=== PATIENT | female | born 1985 | race Caucasian/White ===

== ENCOUNTER 2017-01-31 08:32 | Emergency (ER) | payer SELFPAY ==
[~2017-01-31] VITALS: Ht 157.5 cm; Wt 64.4 kg
[2017-01-31] MEDS ORDERED: NS IV 1000 ML 1,000 ML IV ONE (09:16)
--- NOTE | 2017-01-31 09:24 | ED General ---
General Chief Complaint: Dizziness/Syncope Stated Complaint: DIZZY/CHEST TIGHT/SWELLING Nursing Triage Note: PT CO OF BEING DIZZY AND HAVING ALL OVER SWELLING FOR A FEW DAYS Nursing Sepsis Screen: No Definite Risk Source of Information: Patient Exam Limitations: No Limitations History of Present Illness Time Seen by Provider: 09:10 Initial Comments Here with report of dizziness and swelling all over and just not feeling well. Complains of chills without fever. Denies nausea, vomiting or diarrhea. Does complain of back pain and is worried about urinary tract infection. States that she's had pyelonephritis previously. Was seen last week by her primary care provider and started on steroids. This did not change her symptoms and states that she is worse this week. Timing/Duration: 1 Week, Getting Worse Severity: Moderate Associated Systoms: No Cough, No Diaphoresis, No Fever/Chills, Malaise, No Nausea/Vomiting, No Shortness of Air, No Weakness Allergies and Home Medications Allergies Coded Allergies: No Known Drug Allergies (Unverified , 01/31/17) Constitutional: see HPI, chills, No fever, malaise EENTM: no symptoms reported Respiratory: no symptoms reported Cardiovascular: no symptoms reported Gastrointestinal: no symptoms reported Genitourinary: see HPI, No frequency, pain : No Musculoskeletal: see HPI, muscle pain Skin: no symptoms reported All Other Systems Reviewed Negative Unless Noted: Yes Past Pljusxe-Rznprj-Deppkv Hx Patient Social History Alcohol Use: Denies Use Recreational Drug Use: No Smoking Status: Current Everyday Smoker Type Used: Cigarettes Recent Foreign Travel: No Contact w/Someone Who Travel: No Recent Infectious Disease Expo: No Recent Hopitalizations: No Seasonal Allergies Seasonal Allergies: Yes Surgeries HX Surgeries: No Neurological Hx Neurological Disorders: Yes Neurological Disorders: Headaches /Migraines Musculoskeletal Hx Musculoskeletal Disorders: Yes (pectus excavatum) Psychosocial Hx Psychiatric Problems: Yes Behavioral Health Disorders: Anxiety, Depression Reviewed Nursing Assessment Reviewed/Agree w Nursing PMH: Yes Family Medical History Significant Family History: No Pertinent Family Hx Physical Exam Vital Signs Vital Sign - Last 12Hours 01/31/17 08:40 Temp 97.1 Pulse 63 Resp 18 B/P (MAP) 117/73 Pulse Ox 99 Capillary Refill : Less Than 3 Seconds General Appearance: No Apparent Distress, WD/WN HEENT: PERRL/EOMI, Pharynx Normal Neck: Non Tender, Supple Respiratory: Lungs Clear, Normal Breath Sounds Cardiovascular: Regular Rate, Rhythm, No Murmur Gastrointestinal: Non Tender, Soft Back: Normal Inspection, No Vertebral Tenderness, CVA Tenderness (L), CVA Tenderness (R) Extremity: Normal Range of Motion, Non Tender, No Calf Tenderness Neurologic/Psychiatric: Alert, Oriented x3 Skin: Normal Color, Warm/Dry Progress/Results/Core Measures Results/Orders Lab Results Laboratory Tests Test 01/31/17 09:25 01/31/17 09:40 Range/Units Urine Color YELLOW Urine Clarity CLEAR Urine pH 6.5 5-9 Urine Specific [place] 1.010 L 1.016-1.022 Urine Protein NEGATIVE NEGATIVE Urine Glucose (UA) NEGATIVE NEGATIVE Urine Ketones NEGATIVE NEGATIVE Urine Nitrite POSITIVE H NEGATIVE Urine Bilirubin NEGATIVE NEGATIVE Urine Urobilinogen NORMAL NORMAL MG/DL Urine Leukocyte Esterase 1+ H NEGATIVE Urine RBC (Auto) NEGATIVE NEGATIVE Urine RBC NONE /HPF Urine WBC 0-2 /HPF Urine Squamous Epithelial Cells 0-2 /HPF Urine Crystals NONE /LPF Urine Bacteria LARGE H /HPF Urine Casts NONE /LPF Urine Mucus NEGATIVE /LPF Urine Culture Indicated YES Urine Opiates Screen NEGATIVE NEGATIVE Urine Oxycodone Screen NEGATIVE NEGATIVE Urine Methadone Screen NEGATIVE NEGATIVE Urine Propoxyphene Screen NEGATIVE NEGATIVE Urine Barbiturates Screen NEGATIVE NEGATIVE Ur Tricyclic Antidepressants Screen NEGATIVE NEGATIVE Urine Phencyclidine Screen NEGATIVE NEGATIVE Urine Amphetamines Screen NEGATIVE NEGATIVE Urine Methamphetamines Screen NEGATIVE NEGATIVE Urine Benzodiazepines Screen NEGATIVE NEGATIVE Urine Cocaine Screen NEGATIVE NEGATIVE Urine Cannabinoids Screen NEGATIVE NEGATIVE White Blood Count 8.0 4.3-11.0 10^3/uL Red Blood Count 4.14 L 4.35-5.85 10^6/uL Hemoglobin 13.0 11.5-16.0 G/DL Hematocrit 39 35-52 % Mean Corpuscular Volume 94 80-99 FL Mean Corpuscular Hemoglobin 31 25-34 PG Mean Corpuscular Hemoglobin Concent 33 32-36 G/DL Red Cell Distribution Width 12.1 10.0-14.5 % Platelet Count 321 130-400 10^3/uL Mean Platelet Volume 9.2 7.4-10.4 FL Neutrophils (%) (Auto) 48 42-75 % Lymphocytes (%) (Auto) 40 12-44 % Monocytes (%) (Auto) 8 0-12 % Eosinophils (%) (Auto) 4 0-10 % Basophils (%) (Auto) 0 0-10 % Neutrophils # (Auto) 3.8 1.8-7.8 X 10^3 Lymphocytes # (Auto) 3.2 1.0-4.0 X 10^3 Monocytes # (Auto) 0.6 0.0-1.0 X 10^3 Eosinophils # (Auto) 0.3 0.0-0.3 10^3/uL Basophils # (Auto) 0.0 0.0-0.1 10^3/uL Sodium Level 141 135-145 MMOL/L Potassium Level 4.3 3.6-5.0 MMOL/L Chloride Level 105 98-107 MMOL/L Carbon Dioxide Level 29 21-32 MMOL/L Anion Gap 7 5-14 MMOL/L Blood Urea Nitrogen 10 7-18 MG/DL Creatinine 0.91 0.60-1.30 MG/DL Estimat Glomerular Filtration Rate > 60 BUN/Creatinine Ratio 11 0-20 Glucose Level 65 L 70-105 MG/DL Calcium Level 9.1 8.5-10.1 MG/DL Magnesium Level 2.2 1.8-2.4 MG/DL Total Bilirubin 0.3 0.1-1.0 MG/DL Aspartate Amino Transf (AST/SGOT) 17 5-34 U/L Alanine Aminotransferase (ALT/SGPT) 18 0-55 U/L Alkaline Phosphatase 60 40-136 U/L Total Protein 6.3 L 6.4-8.2 GM/DL Albumin 3.6 3.2-4.5 GM/DL Thyroid Stimulating Hormone (TSH) 0.52 0.35-4.94 UIU/ML My Orders Orders - RADHA BALDERRAMA MD Cbc With Automated Diff (01/31/17 09:16) Comprehensive Metabolic Panel (01/31/17 09:16) Drug Screen Stat (Urine) (01/31/17 09:16) Magnesium (01/31/17 09:16) Thyroid Stimulating Hormone (01/31/17 09:16) Ua Culture If Indicated (01/31/17 09:16) Saline Lock/Iv-Start (01/31/17 09:16) Ns Iv 1000 Ml (Sodium Chloride 0.9%) (01/31/17 09:16) Urine Culture (01/31/17 09:25) Ceftriaxone Injection (Rocephin Injectio (01/31/17 10:45) Medications Given in ED Current Medications Medications Dose Ordered Sig/Anival Route Start Time Stop Time Status Last Admin Dose Admin Ceftriaxone Sodium 1000 mg/ Sodium Chloride 50 ml @ 100 mls/hr ONCE ONCE IV 01/31/17 10:45 01/31/17 11:14 01/31/17 10:49 100 MLS/HR Sodium Chloride 1,000 ml @ 0 mls/hr Q0M ONCE IV 01/31/17 09:16 01/31/17 09:18 DC 01/31/17 09:29 1,000 MLS/HR Vital Signs/I&O Vital Sign - Last 12Hours 01/31/17 08:40 Temp 97.1 Pulse 63 Resp 18 B/P (MAP) 117/73 Pulse Ox 99 Blood Pressure Mean: 88 Progress Note : Progress Note Seen and evaluated. IV, labs, UA, UDS, normal saline 1 L bolus ordered. Monitor patient. UTI noted. Rocephin 1 g IV. 1109: Patient is doing better. We will continue outpatient treatment with antibiotic. Discharged home with return precautions. Patient verbalize understanding instructions and agreement with plan. Departure Impression Impression: Primary Impression: Urinary tract infection Qualified Codes: N30.00 - Acute cystitis without hematuria Disposition: HOME, SELF-CARE Condition: Improved Departure-Patient Inst. Decision time for Depature: 11:13 Referrals: NO,LOCAL PHYSICIAN (PCP/Family) Primary Care Physician Patient Instructions: Urinary Tract Infection, Adult (DC) Add. Discharge Instructions: All discharge instructions reviewed with patient and/or family. Voiced understanding. Take medications as directed. Drink plenty of fluids. You may take ibuprofen 600 mg every 8 hours as needed for pain. You may take Tylenol 1000 mg every 8 hours as needed for pain. Follow-up with your DrKarely in a few days for recheck. Return for worse pain, fever, vomiting, weakness, breathing problems or other concerns as needed. Scripts Cephalexin (Cephalexin) 500 Mg Tablet 500 MG PO BID, #14 TAB 0 Refills Prov: RADHA BALDERRAMA MD 01/31/17 RADHA BALDERRAMA MD Jan 31, 2017 09:24
[2017-01-31 09:52] LABS: BASOPHILS % (AUTO) 0 % (0-10); EOSINOPHILS # (AUTO) 0.3 10^3/uL (0.0-0.3); EOSINOPHILS % (AUTO) 4 % (0-10); LYMPHOCYTES # (AUTO) 3.2 X 10^3 (1.0-4.0); LYMPHOCYTES % (AUTO) 40 % (12-44); MEAN CORPUSCULAR HEMOGLOBIN 31 PG (25-34); MEAN CORPUSCULAR HGB CONC 33 G/DL (32-36); MEAN CORPUSCULAR VOLUME 94 FL (80-99); MEAN PLATELET VOLUME 9.2 FL (7.4-10.4); MONOCYTES # (AUTO) 0.6 X 10^3 (0.0-1.0); MONOCYTES % (AUTO) 8 % (0-12); NEUTROPHILS # (AUTO) 3.8 X 10^3 (1.8-7.8); NEUTROPHILS % (AUTO) 48 % (42-75); PLATELET COUNT 321 10^3/uL (130-400); RED BLOOD COUNT 4.14 10^6/uL (4.35-5.85); RED CELL DISTRIBUTION WIDTH 12.1 % (10.0-14.5)
[2017-01-31 09:52] LABS: BILIRUBIN,URINE NEGATIVE (NEGATIVE); KETONES,URINE NEGATIVE (NEGATIVE); LEUKOCYTE ESTERASE ,URINE 1+ (NEGATIVE); NITRITE,URINE POSITIVE (NEGATIVE); PH,URINE 6.5 (5-9); PROTEIN,URINE NEGATIVE (NEGATIVE); UROBILINOGEN,URINE NORMAL (NORMAL)
[2017-01-31 10:09] LABS: SQUAMOUS EPITHELIAL CELL,UR 0-2 /HPF; WBC,URINE 0-2 /HPF
[2017-01-31 10:13] LABS: ALANINE AMINOTRANSFERASE 18 U/L (0-55); ALBUMIN 3.6 GM/DL (3.2-4.5); ANION GAP 7 MMOL/L (5-14); ASPARTATE AMINO TRANSFERASE 17 U/L (5-34); BILIRUBIN,TOTAL 0.3 MG/DL (0.1-1.0); BLOOD UREA NITROGEN 10 MG/DL (7-18); BUN/CREATININE RATIO 11 (0-20); CALCIUM 9.1 MG/DL (8.5-10.1); CARBON DIOXIDE 29 MMOL/L (21-32); CHLORIDE 105 MMOL/L (98-107); CREATININE SERUM 0.91 MG/DL (0.60-1.30); GFR ESTIMATED > 60; GLUCOSE 65 MG/DL (70-105); HEMOLYSIS 10 (-100-29); ICTERUS 0.4 (-100-1.9); LIPEMIA 3 (-100-49); MAGNESIUM 2.2 MG/DL (1.8-2.4); POTASSIUM 4.3 MMOL/L (3.6-5.0); SODIUM 141 MMOL/L (135-145); TOTAL PROTEIN 6.3 GM/DL (6.4-8.2)
[2017-01-31 10:33] LABS: THYROID STIMULATING HORMONE 0.52 UIU/ML (0.35-4.94)
[2017-01-31] MEDS ORDERED: cefTRIAXone INJECTION 1,000 MG in NS (IVPB) 50 ML IV ONE (10:45)
[2017-01-31] MEDS ORDERED: CEPH500T PO (11:14)
[2017-01-31 11:21] VITALS: BP 122/74
--- OUTSIDE RECORDS SUMMARY | 2017-02-02 14:25 | XMS REPORT | Continuity of Care Document ---
Author Author [employer] Organization [facility] Address Unknown Phone Unavailable Care Team Providers Care Lab Director Name Role Phone [employer] Unavailable Unavailable Problems Problem Status Onset Date Classification Date Reported Comments Source Chest pain on breathing (finding) Active Problem 2013 [facility] Tobacco dependence syndrome (disorder) Active Problem [facility] Medications Allergies, Adverse Reactions, Alerts Substance Category Reaction Severity Reaction type Status Date Reported Comments Source NKA Assertion Drug allergy [facility] Immunizations Immunization Date Given Site Status Last Updated Comments Source No data available for this section No data available for this section [facility] Results Vital Signs Encounters Location Location Details Encounter Type Encounter Number Reason For Visit Attending Provider ADM Date DC Date Status Source CPM [id number] Clinic ( Outpatient) [id number] Imtiaz Martinez 09/10/2013 Active [facility] CPM [id number] Clinic ( Outpatient) [id number] 10/08/2013 Active [facility] CPM [id number] Clinic ( Outpatient) [id number] Kanu Boyce 10/08/2013 Active [facility] CPM [id number] Clinic ( Outpatient) [id number] Imtiaz Martinez 10/08/2013 Active [facility] CPM [id number] Clinic ( Outpatient) [id number] La Anderson 02/20/2014 Active [facility] CPM [id number] Clinic ( Outpatient) [id number] La Anderson 02/20/2014 Active [facility] CPM [id number] Clinic ( Outpatient) [id number] Kanu Boyce 02/20/2014 Active [facility] Cancel/No Show [id number] Kanu Boyce 02/20/2014 02/20/2014 [facility] [id number] Kanu Boyce 02/20/2014 12/05/2013 [facility] CPM [id number] Clinic ( Outpatient) [id number] Lelia Anderson 03/24/2014 Active [facility] Clinic [id number] Lelia Anderson 03/24/2014 02/28/2014 [facility] Procedures Plan of Care Social History Assessment and Plan Family History Value Date Source Advance Directives Order Name Results Value Date Source
== END 2017-01-31 11:21 | disposition home or self-care (01) ==
LOC: ER 08:37
DX: N39.0 Urinary tract infection, site not specified (principal); F41.9 Anxiety disorder, unspecified; F32.9 Major depressive disorder, single episode, unspecified; F17.210 Nicotine dependence, cigarettes, uncomplicated
CPT/HCPCS: 36415; 80053; 80306; 81000; 83735; 84443; 84703; 85025; 87077; 87088; 87186

== ENCOUNTER 2017-02-12 18:11 | Emergency (ER) | payer SELFPAY ==
[~2017-02-12] VITALS: Ht 160 cm; Wt 65.8 kg
[~2017-02-12 18:11] MED LIST: CEPH500T PO
--- NOTE | 2017-02-12 18:47 | ED Integumentary General ---
General Chief Complaint: Bite-Animal/Human/Insect Stated Complaint: SPIDER BITES ON BOTH LEGS Nursing Triage Note: c/o probable insect bites. Two bites noted to right lower leg and one to left lower leg. Circular hemorrhagic erythema noted that is approx 1.5 cm in diameter. Source: patient Exam Limitations: no limitations History of Present Illness Time seen by provider: 18:45 Initial Comments To ER with concern of a spider bite to the right lateral leg and the left lateral lower leg. This is been present for 3 days. No systemic symptoms such as fevers chills nausea or vomiting. Timing/Duration: other (3 days ago) Severity: mild Associated Symptoms: denies symptoms Allergies and Home Medications Allergies Coded Allergies: No Known Drug Allergies (Unverified , 01/31/17) Home Medications Cephalexin 500 Mg Tablet, 500 MG PO BID, #14 Ref 0 Prescribed by: RADHA BALDERRAMA on 01/31/17 1114 Constitutional: see HPI EENTM: see HPI Respiratory: no symptoms reported Cardiovascular: no symptoms reported Genitourinary: no symptoms reported Musculoskeletal: no symptoms reported Skin: see HPI Psychiatric/Neurological: No Symptoms Reported Endocrine: No Symptoms Reported Past Cvtmhrg-Ppclwr-Deibsp Hx Patient Social History Alcohol Use: Denies Use Recreational Drug Use: Yes Type Used: Cigarettes Recent Foreign Travel: No Contact w/Someone Who Travel: No Recent Infectious Disease Expo: No Recent Hopitalizations: No Seasonal Allergies Seasonal Allergies: Yes Surgeries HX Surgeries: No Neurological Hx Neurological Disorders: Yes Neurological Disorders: Headaches /Migraines Musculoskeletal Hx Musculoskeletal Disorders: Yes (pectus excavatum) Psychosocial Hx Psychiatric Problems: Yes Behavioral Health Disorders: Anxiety, Depression Family Medical History Significant Family History: No Pertinent Family Hx Physical Exam Vital Signs Vital Sign - Last 12Hours 02/12/17 18:29 Temp 97.5 Pulse 70 Resp 16 B/P (MAP) 118/70 Pulse Ox 98 O2 Delivery Room Air Capillary Refill : Less Than 3 Seconds General Appearance: WD/WN, no apparent distress HEENT: PERRL/EOMI, normal ENT inspection Neck: non-tender, full range of motion Respiratory: no respiratory distress, no accessory muscle use Gastrointestinal: normal bowel sounds, non tender, soft Neurologic/Psychiatric: alert, normal mood/affect, oriented x 3 Skin: normal color, warm/dry Skin Problem Location: lower extremities, other (there are to nickel-sized areas of erythema/petechiae to the lateral right lower leg. In the center of each of these is a small eschar about 2 cm. There is no induration or fluctuance. No lymphangitis. Similar appearing lesion on the left area) Progress/Results/Core Measures Results/Orders Vital Signs/I&O Vital Sign - Last 12Hours 02/12/17 18:29 Temp 97.5 Pulse 70 Resp 16 B/P (MAP) 118/70 Pulse Ox 98 O2 Delivery Room Air Blood Pressure Mean: 86 Departure Impression Impression: Primary Impression: Spider bite wound Disposition: HOME, SELF-CARE Condition: Stable Departure-Patient Inst. Decision time for Depature: 18:47 Referrals: [facility] (PCP) Primary Care Physician RAHUL SCOTT (Family) Primary Care Physician Patient Instructions: Insect Bites and Stings (DC) Add. Discharge Instructions: 1. Return to ER for any concerns 2. Cool compresses. 3. All discharge instructions reviewed with patient and/or family. Voiced understanding. [employer]ANT OPERATOR Feb 12, 2017 18:47
[2017-02-12 19:00] VITALS: BP 124/70
--- OUTSIDE RECORDS SUMMARY | 2017-02-15 13:46 | XMS REPORT | Continuity of Care Document ---
Author Author [employer] Organization [facility] Address Unknown Phone Unavailable Care Team Providers Care Kiln Worker Name Role Phone [employer] Unavailable Unavailable Problems Problem Status Onset Date Classification Date Reported Comments Source Chest pain on breathing (finding) Active Problem 2013 [facility] Tobacco dependence syndrome (disorder) Active Problem [facility] Medications Allergies, Adverse Reactions, Alerts Substance Category Reaction Severity Reaction type Status Date Reported Comments Source NKA Assertion Drug allergy [facility] Immunizations Immunization Date Given Site Status Last Updated Comments Source No data available for this section No data available for this section [facility] Results Vital Signs Encounters Location Location Details Encounter Type Encounter Number Reason For Visit Attending Provider ADM Date DC Date Status Source CPM [id number] Clinic ( Outpatient) [id number] Imtiaz Martinez 09/10/2013 Active [facility] CPM [id number] Clinic ( Outpatient) [id number] 10/08/2013 Active [facility] CPM [id number] Clinic ( Outpatient) [id number] Kanu Boyce 10/08/2013 Active [facility] CPM [id number] Clinic ( Outpatient) [id number] Imtiaz Martinez 10/08/2013 Active [facility] CPM [id number] Clinic ( Outpatient) [id number] La Anderson 02/20/2014 Active [facility] CPM [id number] Clinic ( Outpatient) [id number] La Anderson 02/20/2014 Active [facility] CPM [id number] Clinic ( Outpatient) [id number] Kanu Boyce 02/20/2014 Active [facility] Cancel/No Show [id number] Kanu Boyce 02/20/2014 02/20/2014 [facility] [id number] Kanu Boyce 02/20/2014 12/05/2013 [facility] CPM [id number] Clinic ( Outpatient) [id number] Lelia Anderson 03/24/2014 Active [facility] Clinic [id number] Lelia Anderson 03/24/2014 02/28/2014 [facility] Procedures Plan of Care Social History Assessment and Plan Family History Value Date Source Advance Directives Order Name Results Value Date Source
== END 2017-02-12 19:15 | disposition home or self-care (01) ==
LOC: EDUNIT# 18:11 → ER 18:12
DX: S80.861A Insect bite (nonvenomous), right lower leg, initial encounter (principal); G43.909 Migraine, unspecified, not intractable, without status migrainosus; F41.9 Anxiety disorder, unspecified; F32.9 Major depressive disorder, single episode, unspecified; F17.210 Nicotine dependence, cigarettes, uncomplicated; F19.10 Other psychoactive substance abuse, uncomplicated; W57.XXXA Bitten or stung by nonvenomous insect and other nonvenomous arthropods, initial encounter
CPT/HCPCS: 99283

== ENCOUNTER 2019-02-24 21:55 | Emergency (ER) | payer OTHER ==
[~2019-02-24] VITALS: Ht 157.5 cm; Wt 65.3 kg
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
--- OUTSIDE RECORDS SUMMARY | 2019-02-24 22:01 | XMS REPORT ---
Author Author SACHIN AGARWAL Organization [facility] Address [address] [place] [address] Care Team Providers Care Gripper Installer Name Role Phone SACHIN AGARWAL Unavailable PROBLEMS Type Condition ICD9-CM Code QUM35-KN Code Onset Dates Condition Status SNOMED Code Problem Bilateral carpal tunnel syndrome G56.03 Active 77235848598583002 Problem Pectus excavatum Q67.6 Active 109705508 Problem Chronic migraine without aura without status migrainosus, not intractable G43.709 Active 733428547 ALLERGIES No Information ENCOUNTERS Encounter Location Date Diagnosis [facility] [id number] [place] [address] May, [facility] [address] [address] Mar, Pain in right wrist M25.531 [facility] [address] [address] Feb, [facility] [id number] [place] [phone] Feb, [facility] [id number] [place] [address] Feb, [facility] [id number] [place] [address] Feb, Pain in left wrist M25.532 ; Pain in right wrist M25.531 and Bilateral carpal tunnel syndrome G56.03 [facility] [id number] [place] [address] Feb, Scabies B86 [facility] [id number] [place] [id number] Feb, Encounter for dental examination and cleaning without abnormal findings Z01.20 [facility] [address] [address] 14 Feb, 2017 Pectus excavatum Q67.6 [facility] [id number] [place] [address] Jan, Pectus excavatum Q67.6 and Chronic migraine without aura without status migrainosus, not intractable G43.709 [facility] [id number] [place] [address] Jan, Chronic migraine without aura without status migrainosus, not intractable G43.709 [place] [id number] [place] [address] Jan, Acute seasonal allergic rhinitis due to pollen J30.1 ; Nausea R11.0 and Chronic migraine without aura without status migrainosus, not intractable G43.709 [facility] [id number] [place] [address] Jan, [facility] [id number] [place] [address] Jan, Acute seasonal allergic rhinitis, unspecified trigger J30.2 [facility] [id number] [place] [address] December, Pectus excavatum Q67.6 ; Chronic migraine without aura without status migrainosus, not intractable G43.709 and General medical exam Z00.00 [facility] [address] [place] [address] Nov, Sore throat J02.9 and Strep throat J02.0 [facility] [address] [id number] Nov, Encounter for dental examination and cleaning without abnormal findings Z01.20 IMMUNIZATIONS No Known Immunizations SOCIAL HISTORY Never Assessed REASON FOR VISIT ekg PLAN OF CARE VITAL SIGNS MEDICATIONS Unknown [...] depo for a year that helped with [employer] FELLOW Medical History Fear Of Shots/Injections Surgical History Right hand 2006 Hospitalization History Sepsis 2016
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
--- OUTSIDE RECORDS SUMMARY | 2019-02-24 22:01 | XMS REPORT ---
Author Author SACHIN AGARWAL Organization [facility] Address [address] [place] [address] Care Team Providers Care Unit Assistant Name Role Phone SACHIN AGARWAL Unavailable PROBLEMS Type Condition ICD9-CM Code ZFX54-SQ Code Onset Dates Condition Status SNOMED Code Problem Bilateral carpal tunnel syndrome G56.03 Active 55939040389290220 Problem Pectus excavatum Q67.6 Active 894988707 Problem Chronic migraine without aura without status migrainosus, not intractable G43.709 Active 244429131 ALLERGIES No Information ENCOUNTERS Encounter Location Date Diagnosis [facility] [id number] [place] [address] May, [facility] [address] [address] Mar, Pain in right wrist M25.531 [facility] [address] [address] Feb, [facility] [id number] [place] [address] Feb, [facility] [id number] [place] [address] Feb, [facility] [id number] [place] [address] Feb, Pain in left wrist M25.532 ; Pain in right wrist M25.531 and Bilateral carpal tunnel syndrome G56.03 [facility] [id number] [place] [address] Feb, Scabies B86 [facility] [id number] [place] [phone] Feb, Encounter for dental examination and cleaning without abnormal findings Z01.20 [facility] [address] [address] 14 Feb, 2017 Pectus excavatum Q67.6 [facility] [id number] [place] [address] Jan, Pectus excavatum Q67.6 and Chronic migraine without aura without status migrainosus, not intractable G43.709 [facility] [id number] [place] [address] Jan, Chronic migraine without aura without status migrainosus, not intractable G43.709 [place] [id number] [place] [address] Jan, Acute seasonal allergic rhinitis due to pollen J30.1 ; Nausea R11.0 and Chronic migraine without aura without status migrainosus, not intractable G43.709 [facility] [id number] [place] [address] Jan, [facility] [id number] [place] [address] Jan, Acute seasonal allergic rhinitis, unspecified trigger J30.2 [place] [id number] [place] [address] December, Pectus excavatum Q67.6 ; Chronic migraine without aura without status migrainosus, not intractable G43.709 and General medical exam Z00.00 [facility] [address] [place] [address] Nov, Sore throat J02.9 and Strep throat J02.0 [facility] [address] [id number] Nov, Encounter for dental examination and cleaning without abnormal findings Z01.20 IMMUNIZATIONS No Known Immunizations SOCIAL HISTORY Never Assessed REASON FOR VISIT tests PLAN OF CARE VITAL SIGNS MEDICATIONS Unknown [...] 

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
--- OUTSIDE RECORDS SUMMARY | 2019-02-24 22:02 | XMS REPORT ---
Author Author SACHIN AGARWAL Organization [facility] Address [address] [place] [address] Care Team Providers Care Paper Mill Supervisor Name Role Phone SACHIN AGARWAL Unavailable PROBLEMS Type Condition ICD9-CM Code LUG29-ZI Code Onset Dates Condition Status SNOMED Code Problem Bilateral carpal tunnel syndrome G56.03 Active 35434420999302310 Problem Pectus excavatum Q67.6 Active 018371872 Problem Chronic migraine without aura without status migrainosus, not intractable G43.709 Active 713915030 ALLERGIES No Information ENCOUNTERS Encounter Location Date Diagnosis [facility] [id number] [place] [address] May, [facility] [address] [address] Mar, Pain in right wrist M25.531 [facility] [address] [address] Feb, [facility] [id number] [place] [address] Feb, [facility] [id number] [place] [address] Feb, [facility] [id number] [place] [address] Feb, Pain in left wrist M25.532 ; Pain in right wrist M25.531 and Bilateral carpal tunnel syndrome G56.03 [facility] [id number] [place] [address] Feb, Scabies B86 [facility] [id number] [place] [phone] Feb, Encounter for dental examination and cleaning without abnormal findings Z01.20 [facility] [address], [place] [address] 14 Feb, 2017 Pectus excavatum Q67.6 [facility] [id number] [place] [address] Jan, Pectus excavatum Q67.6 and Chronic migraine without aura without status migrainosus, not intractable G43.709 [facility] [id number] [place] [address] Jan, Chronic migraine without aura without status migrainosus, not intractable G43.709 [place] [id number] [place] [address] Jan, Acute seasonal allergic rhinitis due to pollen J30.1 ; Nausea R11.0 and Chronic migraine without aura without status migrainosus, not intractable G43.709 [facility] [id number] [place] [address] Jan, [facility] [id number] [place] [address] Jan, Acute seasonal allergic rhinitis, unspecified trigger J30.2 [facility] [id number] [place] [address] December, Pectus excavatum Q67.6 ; Chronic migraine without aura without status migrainosus, not intractable G43.709 and General medical exam Z00.00 [facility] [address] [place] [address] Nov, Sore throat J02.9 and Strep throat J02.0 [facility] [address] [id number] Nov, Encounter for dental examination and cleaning without abnormal findings Z01.20 IMMUNIZATIONS No Known Immunizations SOCIAL HISTORY Never Assessed REASON FOR VISIT referral question PLAN OF CARE VITAL SIGNS MEDICATIONS Unknown [...] 

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
--- OUTSIDE RECORDS SUMMARY | 2019-02-24 22:02 | XMS REPORT ---
Author Author RAHUL SCOTT Organization [facility] Address [facility] [place] [address] Care Team Providers Care Wood Gouger Name Role Phone RAHUL SCOTT Unavailable PROBLEMS Type Condition ICD9-CM Code YUC95-TB Code Onset Dates Condition Status SNOMED Code Problem Pectus excavatum Q67.6 Active 141942639 Problem Chronic migraine without aura without status migrainosus, not intractable G43.709 Active 464761360 ALLERGIES No Information ENCOUNTERS Encounter Location Date Diagnosis [place] [address] [address] Feb, Scabies B86 [facility] [address] [id number] Feb, Encounter for dental examination and cleaning without abnormal findings Z01.[address] [address] Feb, Pectus excavatum Q67.6 [facility] [address] [address] Jan, Pectus excavatum Q67.6 and Chronic migraine without aura without status migrainosus, not intractable G43.709 [facility] [address] [place] [id number] [place] [address] Jan, Chronic migraine without aura without status migrainosus, not intractable G43.709 [facility] [address] [address] Jan, Acute seasonal allergic rhinitis due to pollen J30.1 ; Nausea R11.0 and Chronic migraine without aura without status migrainosus, not intractable G43.709 [facility] [address] [place] [id number] [address] Jan, [facility] [address], [place] [address] Jan, Acute seasonal allergic rhinitis, unspecified trigger J30.2 [facility] [address] [place] [address] December, Pectus excavatum Q67.6 ; Chronic migraine without aura without status migrainosus, not intractable G43.709 and General medical exam Z00.00 [facility] [address] [place] [address] Nov, Sore throat J02.9 and Strep throat J02.0 [facility] [address] [id number] Nov, Encounter for dental examination and cleaning without abnormal findings Z01.20 IMMUNIZATIONS No Known Immunizations SOCIAL HISTORY Never Assessed REASON FOR VISIT Requests return call PLAN OF CARE VITAL SIGNS MEDICATIONS Medication Instructions Dosage Frequency Start Date End Date Duration Status Indomethacin 50 mg Orally Twice a day [...] depo for a year that 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
[2019-02-24] MEDS ORDERED: FAMOTIDINE 20 MG (PEPCID) TABLET PO STA (22:04)
--- NOTE | 2019-02-24 22:12 | ED Chest Pain ---
General Stated Complaint: CHEST PAIN, HIGH BLOOD PRESSURE Source: patient, police Exam Limitations: no limitations History of Present Illness Date Seen by Provider: Feb 24, 2019 Time Seen by Provider: 21:59 Initial Comments Patient presents the ER in police custody with chief complaint that all day she's been experiencing some progressively worsening substernal chest pain. She says she has a history of pectus excavatum and every few months she gets some chest wall pain. She's been worked up multiple times and sent to pain management. She's had NSAIDs and steroids prescribed for it. She was even on Percocet one point. She does not have a history of coronary disease. She does smoke but has no diabetes high blood pressure or high cholesterol. Her complaint of high blood pressure today is 130/100 per police. She says the pains were on deep inspiration or direct palpation. She is not having a cough fever chills but she did have some sweats and felt very hot. She denies a history of GERD up until recently. 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 Allergies and Home Medications Allergies Coded Allergies: No Known Drug Allergies (Unverified , 01/31/17) Home Medications Cephalexin 500 Mg Tablet, 500 MG PO BID Prescribed by: RADHA BALDERRAMA on 01/31/17 1114 Patient Home Medication List Home Medication List Reviewed: Yes Review of Systems Review of Systems Constitutional: No chills, No diaphoresis EENTM: No Blurred Vision, No Double Vision Respiratory: Denies Cough, Denies Shortness of Air, Denies Wheezing Cardiovascular: Chest Pain; Denies Edema Gastrointestinal: Denies Abdomen Distended, Denies Abdominal Pain, Denies Constipated, Denies Diarrhea, Denies Nausea Genitourinary: Denies Burning, Denies Discharge Musculoskeletal: No back pain, No joint pain Past Fxzbcdq-Iojyql-Oiezli Hx Patient Social History Alcohol Use: Denies Use Recreational Drug Use: Yes Smoking Status: Current Everyday Smoker Type Used: Cigarettes Recent Hopitalizations: No Seasonal Allergies Seasonal Allergies: Yes Past Medical History Surgeries: Yes (HAND SURG) Respiratory: No Cardiac: No Neurological: Yes Headaches /Migraines Musculoskeletal: Yes (pectus excavatum) Psychosocial: Yes Anxiety, Depression Integumentary: No Family Medical History No Pertinent Family Hx Physical Exam Vital Signs Vital Signs - First Documented 02/24/19 02/24/19 22:00 23:07 Temp 97.9 Pulse 87 Resp 18 B/P (MAP) 129/81 (97) Pulse Ox 100 O2 Delivery Room Air Capillary Refill : Height, Weight, BMI Height: 5'3.00" Weight: 145lbs. oz. 65.358609eo; BMI Method:Stated General Appearance: No Apparent Distress, WD/WN (smiling, jovial) HEENT: PERRL/EOMI, Normal ENT Inspection, Moist Mucous Membranes Neck: Full Range of Motion, Normal Inspection, Non Tender Respiratory: No Chest Non Tender (very tender to touch midline anterior chest); Lungs Clear, Normal Breath Sounds, No Accessory Muscle Use, No Respiratory Distress Cardiovascular: Regular Rate, Rhythm, No Edema, Normal Peripheral Pulses Extremity: Normal Capillary Refill, Non Tender, No Pedal Edema Neurologic/Psychiatric: Alert, Oriented x3 Progress/Results/Core Measures Results/Orders Lab Results Laboratory Tests Test 02/24/19 22:12 Range/Units White Blood Count 8.6 4.3-11.0 10^3/uL Red Blood Count 4.52 4.35-5.85 10^6/uL Hemoglobin 13.9 11.5-16.0 G/DL Hematocrit 42 35-52 % Mean Corpuscular Volume 92 80-99 FL Mean Corpuscular Hemoglobin 31 25-34 PG Mean Corpuscular Hemoglobin Concent 34 32-36 G/DL Red Cell Distribution Width 12.3 10.0-14.5 % Platelet Count 354 130-400 10^3/uL Mean Platelet Volume 9.3 7.4-10.4 FL Neutrophils (%) (Auto) 41 L 42-75 % Lymphocytes (%) (Auto) 42 12-44 % Monocytes (%) (Auto) 6 0-12 % Eosinophils (%) (Auto) 10 0-10 % Basophils (%) (Auto) 1 0-10 % Neutrophils # (Auto) 3.5 1.8-7.8 X 10^3 Lymphocytes # (Auto) 3.6 1.0-4.0 X 10^3 Monocytes # (Auto) 0.5 0.0-1.0 X 10^3 Eosinophils # (Auto) 0.8 H 0.0-0.3 10^3/uL Basophils # (Auto) 0.1 0.0-0.1 10^3/uL Sodium Level 137 135-145 MMOL/L Potassium Level 4.3 3.6-5.0 MMOL/L Chloride Level 97 L 98-107 MMOL/L Carbon Dioxide Level 25 21-32 MMOL/L Anion Gap 15 H 5-14 MMOL/L Blood Urea Nitrogen 12 7-18 MG/DL Creatinine 0.94 0.60-1.30 MG/DL Estimat Glomerular Filtration Rate > 60 BUN/Creatinine Ratio 13 Glucose Level 98 70-105 MG/DL Calcium Level 8.9 8.5-10.1 MG/DL Corrected Calcium 8.7 8.5-10.1 MG/DL Magnesium Level 2.1 1.8-2.4 MG/DL Total Bilirubin 0.2 0.1-1.0 MG/DL Aspartate Amino Transf (AST/SGOT) 15 5-34 U/L Alanine Aminotransferase (ALT/SGPT) 13 0-55 U/L Alkaline Phosphatase 72 40-136 U/L Myoglobin 21.0 10.0-92.0 NG/ML Troponin I 0.30 <0.30 NG/ML Total Protein 7.4 6.4-8.2 GM/DL Albumin 4.2 3.2-4.5 GM/DL My Orders Orders - SERGEI FORMAN Continuous Ekg Monitoring (02/24/19 21:58) Ekg Tracing (02/24/19 21:58) Lidocaine 2% Viscous 15 Ml (Xylocaine Vi (02/24/19 22:15) Famotidine Tablet (Pepcid Tablet) (02/24/19 22:04) Antacid Suspension (Mylanta Suspension (02/24/19 22:15) Ed Iv/Invasive Line Start (02/24/19 22:04) Cbc With Automated Diff (02/24/19 22:04) Magnesium (02/24/19 22:04) Chest 1 View Ap/Pa Only (02/24/19 22:04) Comprehensive Metabolic Panel (02/24/19 22:04) Myoglobin Serum (02/24/19 22:04) Ed Iv/Invasive Line Start (02/24/19 22:04) Troponin I (02/24/19 22:04) Medications Given in ED Current Medications Medications Dose Ordered Sig/Anival Route Start Time Stop Time Status Last Admin Dose Admin Al Hydrox/Mg Hydrox/Simethicone 30 ml ONCE ONCE PO 7/14/19 22:15 02/24/19 22:16 DC 02/24/19 22:21 30 ML Lidocaine HCl 15 ml ONCE ONCE PO 02/24/19 22:15 02/24/19 22:16 DC 02/24/19 22:21 15 ML Vital Signs/I&O 02/24/19 02/24/19 22:00 23:07 Temp 97.9 Pulse 87 87 Resp 18 20 B/P (MAP) 129/81 (97) Pulse Ox 100 97 O2 Delivery Room Air Room Air Progress Progress Note : Time: 22:10 Progress Note Her chest pain seems to be chest wall related. Musculoskeletal. It's her history. 3 cautious we will check some basic labs and obtain a chest x-ray. EKG unremarkable. Coronary disease seems unlikely although she does have a history of illicit drug use remotely. Pulmonary embolism less likely. Well score 0.0 points. She has a normal oxygen saturation and a heart rate in the 70s without any labored breathing. Initial ECG Impression Date: Feb 24, 2019 Initial ECG Impression Time: 22:04 Initial ECG Rate: 79 Initial ECG Rhythm: Normal Sinus Initial ECG Intervals: Normal Initial ECG Impression: Normal Comment No ST elevation or depression. Diagnostic Imaging Diagonstic Imaging: Xray Plain Films/CT/US/NM/MRI: chest (1v) Comments No acute cardiopulmonary processes noted on one view chest x-ray. Reviewed: Reviewed by Me Departure Impression Primary Impression: Chest wall pain Disposition: 01 HOME, SELF-CARE Condition: Stable Departure-Patient Inst. Decision time for Depature: 23:30 Referrals: [facility] (PCP) Primary Care Physician RAHUL SCOTT (Family) Primary Care Physician Patient Instructions: Costochondritis (DC) Add. Discharge Instructions: Naprosyn 500 mg twice a day until the pain goes away or 2 weeks. Muscle rubs will be reasonable. Heating pads if available. Scripts Naproxen (Naprosyn) 500 Mg Tablet 500 MG PO BID for 14 Days, #30 TAB 0 Refills Prov: SERGEI FORMAN 02/24/19 SERGEI FORMAN Feb 24, 2019 22:12
[2019-02-24] MEDS ORDERED: LIDOCAINE 2% VISCOUS 15 ML UDC PO ONE (22:15)
[2019-02-24] MEDS ORDERED: ANTACID SUSP 30 ML UDC (MYLANTA) PO ONE (22:15)
[2019-02-24 22:42] LABS: BASOPHILS % (AUTO) 1 % (0-10); EOSINOPHILS % (AUTO) 10 % (0-10); HEMATOCRIT 42 % (35-52); HEMOGLOBIN 13.9 G/DL (11.5-16.0); LYMPHOCYTES % (AUTO) 42 % (12-44); MEAN CORPUSCULAR HEMOGLOBIN 31 PG (25-34); MEAN CORPUSCULAR HGB CONC 34 G/DL (32-36); MEAN CORPUSCULAR VOLUME 92 FL (80-99); MEAN PLATELET VOLUME 9.3 FL (7.4-10.4); MONOCYTES % (AUTO) 6 % (0-12); NEUTROPHILS % (AUTO) 41 % (42-75); PLATELET COUNT 354 10^3/uL (130-400); RED CELL DISTRIBUTION WIDTH 12.3 % (10.0-14.5); WHITE BLOOD COUNT 8.6 10^3/uL (4.3-11.0)
[2019-02-24 22:43] LABS: BASOPHILS # (AUTO) 0.1 10^3/uL (0.0-0.1); EOSINOPHILS # (AUTO) 0.8 10^3/uL (0.0-0.3); LYMPHOCYTES # (AUTO) 3.6 X 10^3 (1.0-4.0); MONOCYTES # (AUTO) 0.5 X 10^3 (0.0-1.0); NEUTROPHILS # (AUTO) 3.5 X 10^3 (1.8-7.8)
[2019-02-24 23:21] LABS: BILIRUBIN,TOTAL 0.2 MG/DL (0.1-1.0); BUN/CREATININE RATIO 13; CALCIUM 8.9 MG/DL (8.5-10.1); CARBON DIOXIDE 25 MMOL/L (21-32); CHLORIDE 97 MMOL/L (98-107); CREATININE SERUM 0.94 MG/DL (0.60-1.30); GFR ESTIMATED > 60; GLUCOSE 98 MG/DL (70-105); MAGNESIUM 2.1 MG/DL (1.8-2.4); POTASSIUM 4.3 MMOL/L (3.6-5.0); SODIUM 137 MMOL/L (135-145)
[2019-02-24 23:22] LABS: ALANINE AMINOTRANSFERASE 13 U/L (0-55); ALBUMIN 4.2 GM/DL (3.2-4.5); ALKALINE PHOSPHATASE 72 U/L (40-136); TOTAL PROTEIN 7.4 GM/DL (6.4-8.2)
[2019-02-24] MEDS ORDERED: NAPR-1071 PO (23:33)
[2019-02-24] MEDS ORDERED: KETOROLAC 30 MG/ML VIAL IVP ONE (23:45)
[2019-02-24 23:47] VITALS: BP 116/78
--- NOTE | 2019-02-25 06:49 | Diagnostic Imaging Report ---
EXAMINATION: Chest radiograph, portable AP view. DATE: February 24, 2019 at 2226 hours. INDICATION: 33-year-old female, chest pain. COMPARISON: None. FINDINGS: Heart size and mediastinal contours are unremarkable. There is no identified pneumothorax. There is no large pleural effusion. There is no identified focal airspace consolidation. IMPRESSION: No identified acute cardiopulmonary abnormality. Dictated by: Dictated on workstation # [id number]
== END 2019-02-24 23:49 | disposition home or self-care (01) ==
LOC: EDUNIT# 21:55 → ER FS 21:57
DX: R07.89 Other chest pain (principal); G43.909 Migraine, unspecified, not intractable, without status migrainosus; F41.9 Anxiety disorder, unspecified; F32.9 Major depressive disorder, single episode, unspecified; F17.210 Nicotine dependence, cigarettes, uncomplicated
CPT/HCPCS: 36415; 71045; 80053; 83735; 83874; 84484; 85025; 93005

== ENCOUNTER 2021-10-02 16:06 | Emergency (ER) | payer MEDICAID, OTHER ==
[~2021-10-02] VITALS: Ht 170.1 cm; Wt 65.7 kg
[~2021-10-02 16:06] MED LIST changes: +NAPR-1071 PO
--- NOTE | 2021-10-02 16:14 | ED EENT ---
History of Present Illness General Chief Complaint: Dental Problems/Pain Stated Complaint: ABCESS TOOTH, DIZZINESS History of Present Illness Date Seen by Provider: Oct 02, 2021 Time Seen by Provider: 16:13 Initial Comments 36-year-old female presents with right-sided facial swelling, tooth abscess and dizziness. She reports that she is been having some dental pain and dental abscess for about a 7 to 10 days. Couple days ago her dentist told her to come to the ER to be seen for antibiotics. Patient did not present at that time. She reports that she has been dizzy for the last couple days now with worsening pain. Denies any fever or chills. Allergies and Home Medications Allergies Coded Allergies: No Known Drug Allergies (Unverified , 01/31/17) Patient Home Medication List Home Medication List Reviewed: Yes Cephalexin (Cephalexin) 500 Mg Tablet, 500 MG PO BID Prescribed by: RADHA BALDERRAMA on 01/31/17 1114 Naproxen (Naprosyn) 500 Mg Tablet, 500 MG PO BID Prescribed by: SERGEI FORMAN on 02/24/19 2333 Review of Systems Review of Systems Constitutional: see HPI; No chills; dizziness; No fever Mouth: see HPI Throat: no symptoms reported Respiratory: no symptoms reported Cardiovascular: no symptoms reported Musculoskeletal: no symptoms reported Skin: no symptoms reported Neurological: No Symptoms Reported Hematologic/Lymphatic: No Symptoms Reported Past Hykrhhk-Iplzgr-Cvftlj Hx Seasonal Allergies Seasonal Allergies: Yes Past Medical History Surgeries: Yes (HAND SURG) Respiratory: No Cardiac: No Neurological: Yes Headaches /Migraines Musculoskeletal: Yes (pectus excavatum) Psychosocial: Yes Anxiety, Depression Integumentary: No Family Medical History No Pertinent Family Hx Physical Exam Vital Signs Vital Signs - First Documented 10/02/21 16:23 Temp 36.0 Pulse 87 Resp 18 B/P (MAP) 104/63 (77) Pulse Ox 97 O2 Delivery Room Air Height, Weight, BMI Height: 5'2.00" Weight: 144lbs. oz. 65.875181lg; BMI Method:Stated General Appearance: mild distress Mouth/Throat: other (No obvious abscess noted however she does have some mild swollen gums and lower gum and teeth tender) Neck: supple Cardiovascular: normal peripheral pulses, regular rate, rhythm Respiratory: lungs clear, normal breath sounds Gastrointestinal: non tender, soft Neurologic/Psychiatric: alert, normal mood/affect Skin: other (Mild right-sided facial swelling) Progress/Results/Core Measures Results/Orders Lab Results Laboratory Tests Test 10/02/21 16:30 Range/Units White Blood Count 10.7 4.3-11.0 10^3/uL Red Blood Count 4.75 3.80-5.11 10^6/uL Hemoglobin 14.2 11.5-16.0 g/dL Hematocrit 42 35-52 % Mean Corpuscular Volume 88 80-99 fL Mean Corpuscular Hemoglobin 30 25-34 pg Mean Corpuscular Hemoglobin Concent 34 32-36 g/dL Red Cell Distribution Width 12.6 10.0-14.5 % Platelet Count 466 H 130-400 10^3/uL Mean Platelet Volume 8.6 L 9.0-12.2 fL Immature Granulocyte % (Auto) 0 % Neutrophils (%) (Auto) 77 H 42-75 % Lymphocytes (%) (Auto) 16 12-44 % Monocytes (%) (Auto) 4 0-12 % Eosinophils (%) (Auto) 2 0-10 % Basophils (%) (Auto) 0 0-10 % Neutrophils # (Auto) 8.2 H 1.8-7.8 10^3/uL Lymphocytes # (Auto) 1.8 1.0-4.0 10^3/uL Monocytes # (Auto) 0.4 0.0-1.0 10^3/uL Eosinophils # (Auto) 0.3 0.0-0.3 10^3/uL Basophils # (Auto) 0.0 0.0-0.1 10^3/uL Immature Granulocyte # (Auto) 0.0 0.0-0.1 10^3/uL Sodium Level 137 135-145 MMOL/L Potassium Level 4.0 3.6-5.0 MMOL/L Chloride Level 101 98-107 MMOL/L Carbon Dioxide Level 25 21-32 MMOL/L Anion Gap 11 5-14 MMOL/L Blood Urea Nitrogen 7 7-18 MG/DL Creatinine 0.80 0.60-1.30 MG/DL Estimat Glomerular Filtration Rate 98 BUN/Creatinine Ratio 9 Glucose Level 122 H 70-105 MG/DL Calcium Level 9.2 8.5-10.1 MG/DL My Orders Orders - RAGHU HARDING DO Basic Metabolic Panel (10/02/21 16:19) Cbc With Automated Diff (10/02/21 16:19) Ondansetron Injection (Zofran Injectio (10/02/21 16:30) Ns Iv 1000 Ml (Sodium Chloride 0.9%) (10/02/21 16:19) Ketorolac Injection (Toradol Injection) (10/02/21 16:19) Ceftriaxone (Rocephin) (10/02/21 16:30) Medications Given in ED Current Medications Medications Dose Ordered Sig/Anival Route Start Time Stop Time Status Last Admin Dose Admin Ceftriaxone Sodium 2000 mg/ Sodium Chloride 50 ml @ 240 mls/hr ONCE ONCE IV 10/02/21 16:30 10/02/21 16:42 DC 10/02/21 16:40 240 MLS/HR Ondansetron HCl 4 mg ONCE ONCE IVP 10/02/21 16:30 10/02/21 16:31 DC 10/02/21 16:39 4 MG Vital Signs/I&O 10/02/21 16:23 Temp 36.0 Pulse 87 Resp 18 B/P (MAP) 104/63 (77) Pulse Ox 97 O2 Delivery Room Air Progress Progress Note : Progress Note Patient with a dental abscess with some mild facial cellulitis. There is no drainable abscess noted at this time. I will start her on clindamycin. Her labs do not show any acute findings. Patient stable and discharged home. Departure Impression Primary Impression: Dental abscess Additional Impression: Facial cellulitis Disposition: 01 HOME, SELF-CARE Condition: Stable Departure-Patient Inst. Referrals: MARIE ANGELES MD (PCP/Family) Primary Care Physician Patient Instructions: Tooth Abscess (DC), Cellulitis (Skin Infection), Adult ED Add. Discharge Instructions: Follow-up with your primary care provider or dentist in 3 to 4 days for recheck of your symptoms All discharge instructions reviewed with patient and/or family. Voiced understanding. Scripts Ondansetron (Ondansetron Odt) 4 Mg Tab.rapdis 4 MG PO Q6H PRN for NAUSEA/VOMITING, #20 TAB 0 Refills Prov: HARIDNG,RAGHU L DO 10/02/21 Metronidazole (Metronidazole) 500 Mg Tablet 500 MG PO BID, #14 TAB 0 Refills Prov: HARDING,RAGHU L DO 10/02/21 Clindamycin HCl (Clindamycin HCl) 300 Mg Capsule 300 MG PO TID for 10 Days, #30 CAP Prov: RAGHU HARDING DO 10/02/21 RAGHU HARDING DO Oct 02, 2021 16:13
[2021-10-02] MEDS ORDERED: NS IV 1000 ML 1,000 ML IV STA (16:19)
[2021-10-02] MEDS ORDERED: KETOROLAC 30 MG/ML VIAL IVP STA (16:19)
[2021-10-02] MEDS ORDERED: ONDANSETRON 4 MG/2 ML (SDV) Z0FRAN IVP ONE (16:30)
[2021-10-02] MEDS ORDERED: cefTRIAXone 2,000 MG in NS (IVPB) 50 ML IV ONE (16:30)
[2021-10-02 16:34] LABS: BASOPHILS % (AUTO) 0 % (0-10); EOSINOPHILS # (AUTO) 0.3 10^3/uL (0.0-0.3); EOSINOPHILS % (AUTO) 2 % (0-10); HEMATOCRIT 42 % (35-52); HEMOGLOBIN 14.2 g/dL (11.5-16.0); LYMPHOCYTES # (AUTO) 1.8 10^3/uL (1.0-4.0); LYMPHOCYTES % (AUTO) 16 % (12-44); MEAN CORPUSCULAR HEMOGLOBIN 30 pg (25-34); MEAN CORPUSCULAR HGB CONC 34 g/dL (32-36); MEAN CORPUSCULAR VOLUME 88 fL (80-99); MEAN PLATELET VOLUME 8.6 fL (9.0-12.2); MONOCYTES # (AUTO) 0.4 10^3/uL (0.0-1.0); MONOCYTES % (AUTO) 4 % (0-12); NEUTROPHILS # (AUTO) 8.2 10^3/uL (1.8-7.8); NEUTROPHILS % (AUTO) 77 % (42-75); PLATELET COUNT 466 10^3/uL (130-400); WHITE BLOOD COUNT 10.7 10^3/uL (4.3-11.0)
[2021-10-02 16:50] LABS: CALCIUM 9.2 MG/DL (8.5-10.1); CREATININE SERUM 0.8 MG/DL (0.60-1.30)
[2021-10-02] MEDS ORDERED: ONDA4TAB11 PO (17:05)
[2021-10-02] MEDS ORDERED: METR-145 PO (17:05)
[2021-10-02] MEDS ORDERED: CLIN-144 PO (17:05)
[2021-10-02 17:10] VITALS: BP 101/67
== END 2021-10-02 17:10 | disposition home or self-care (01) ==
LOC: EDUNIT# 16:06 → ER FS 16:08
DX: K04.7 Periapical abscess without sinus (principal); L03.211 Cellulitis of face
CPT/HCPCS: 36415; 80048; 85025

== ENCOUNTER 2022-06-29 12:58 | Emergency (ER) | payer MEDICAID ==
[~2022-06-29] VITALS: Ht 157 cm; Wt 74.0 kg
[~2022-06-29 12:58] MED LIST changes: +CLIN-144 PO; +METR-145 PO; +ONDA4TAB11 PO
[2022-06-29] MEDS ORDERED: NS IV 1000 ML 1,000 ML IV SCH (13:15)
--- NOTE | 2022-06-29 13:16 | ED GU-Female ---
General Chief Complaint: - Reproductive Stated Complaint: FLEX FLANK PAIN; URINARY PAIN; NAUSEA Source: patient Exam Limitations: no limitations History of Present Illness Date Seen by Provider: Jun 29, 2022 Time Seen by Provider: 13:05 Initial Comments 36-year-old female presents the emergency department today for suprapubic pain, dysuria and bilateral lumbar pains which she thinks is related to her "kidneys." Notably she is 5 months . She is having no vaginal discharge odor or bleeding. She does not think her symptoms are currently related to her and she still feeling baby move. She states for the last 3 days she has been in bed for the most part feeling nauseous and generally rundown. She has had no vomiting. Suprapubic pain started around the same time. She has a history of UTI several years ago. She denies any fevers or chills. Normal bowel movements. She has been eating and drinking okay without difficulty. No chest pain, shortness of breath. No abdominal pains outside of those mentioned. Allergies and Home Medications Allergies Coded Allergies: No Known Drug Allergies (Unverified , 01/31/17) Patient Home Medication List Home Medication List Reviewed: Yes Cephalexin (Cephalexin) 500 Mg Tablet, 500 MG PO BID Prescribed by: RADHA BALDERRAMA on 01/31/17 1114 Clindamycin HCl (Clindamycin HCl) 300 Mg Capsule, 300 MG PO TID Prescribed by: RAGHU HARDING on 10/02/21 170 Metronidazole (Metronidazole) 500 Mg Tablet, 500 MG PO BID Prescribed by: RAGHU HARDING on 10/02/21 170 Naproxen (Naprosyn) 500 Mg Tablet, 500 MG PO BID Prescribed by: SERGEI FORMAN on 02/24/19 2333 Ondansetron (Ondansetron Odt) 4 Mg Tab.rapdis, 4 MG PO Q6H PRN for NAUSEA/VOMITING Prescribed by: RAGHU HARDING on 10/02/21 1705 Review of Systems Review of Systems Constitutional: no symptoms reported EENTM: no symptoms reported Respiratory: no symptoms reported Cardiovascular: no symptoms reported Gastrointestinal: no symptoms reported Genitourinary: dysuria, frequency Musculoskeletal: no symptoms reported Skin: no symptoms reported Psychiatric/Neurological: No Symptoms Reported Endocrine: No Symptoms Reported Hematologic/Lymphatic: No Symptoms Reported Past Oybhgam-Gmptih-Pnfhbk Hx Patient Social History Tobacco Use?: Yes Use of E-Cig and/or Vaping dev: No Substance use?: No Alcohol Use?: No Seasonal Allergies Seasonal Allergies: Yes Past Medical History Surgery/Hospitalization HX: Dental caries Surgeries: Yes (HAND SURG) Respiratory: No Cardiac: No Neurological: Yes Headaches /Migraines Musculoskeletal: Yes (pectus excavatum) Psychosocial: Yes Anxiety, Depression Integumentary: No Family Medical History Reviewed Nursing Family Hx No Pertinent Family Hx Physical Exam Vital Signs Vital Signs - First Documented 06/29/22 13:35 Temp 36.9 Pulse 120 Resp 16 B/P (MAP) 131/66 (87) Pulse Ox 100 O2 Delivery Room Air Capillary Refill : Height, Weight, BMI Height: 5'2.00" Weight: 144lbs. oz. 65.183657vq; 22.00 BMI Method:Stated General Appearance: WD/WN, no apparent distress HEENT: normal ENT inspection, pharynx normal Neck: non-tender, supple Cardiovascular: no edema, no gallop, no JVD, no murmur, tachycardia Respiratory: chest non-tender, lungs clear, normal breath sounds, no respiratory distress, no accessory muscle use Gastrointestinal: normal bowel sounds, soft, no organomegaly, no pulsatile mass, other (Tenderness palpation of the suprapubic region with voluntary guarding. No rebound tenderness. Mild tenderness to bilateral lumbar region.) Extremities: normal range of motion, non-tender, normal inspection, no pedal edema, no calf tenderness, normal capillary refill Neurologic/Psychiatric: alert, normal mood/affect, oriented x 3 Skin: normal color, warm/dry Lymphatic: no adenopathy Focused Exam Lactate Level 06/29/22 13:18: Lactic Acid Level 2.77*H 06/29/22 15:30: Lactic Acid Level 0.84 Progress/Results/Core Measures Suspected Sepsis SIRS Temperature: Pulse: Respiratory Rate: Laboratory Tests 06/29/22 13:18: White Blood Count 17.6H Blood Pressure / Mean: 06/29/22 13:18: Lactic Acid Level 2.77*H 06/29/22 15:30: Lactic Acid Level 0.84 Laboratory Tests 06/29/22 13:18: Creatinine 0.59L, Platelet Count 416H, Total Bilirubin 0.2 Results/Orders My Orders Vital Signs/I&O Capillary Refill : Departure Communication (Admissions) Patient remained hemodynamically stable, though she did continue to be tachycardic. She has significant urinary tract infection with leukocytosis and elevated lactic Acid level was high indicating abnormally low tissue oxygenation.. Her heart rate remained elevated even after IV fluids. Concern for sepsis at this time. There is no indication for obstetric complication at this time as she is feeling baby move normally. She sees Dr. Beth at [facility]. I spoke with Dr. Lopez who is on-call for Dr. Beth. Impression Primary Impression: Pyelonephritis Disposition: XF [facility] Condition: Stable Departure-Patient Inst. Referrals: AUGUSTA BETH MD (PCP) Primary Care Physician HIPOLITO LONDON DO Jun 29, 2022 13:16
[2022-06-29 13:19] LABS: BILIRUBIN,URINE NEGATIVE (NEGATIVE); CLARITY,URINE TURBID; COLOR,URINE YELLOW; GLUCOSE, URINE (UA) NEGATIVE (NEGATIVE); KETONES,URINE 3+ (NEGATIVE); LEUKOCYTE ESTERASE ,URINE 2+ (NEGATIVE); NITRITE,URINE POSITIVE (NEGATIVE); PROTEIN,URINE TRACE (NEGATIVE)
[2022-06-29 13:28] LABS: BACTERIA,URINE MODERATE /HPF; SQUAMOUS EPITHELIAL CELL,UR 0-2 /HPF; WBC,URINE >100 /HPF
[2022-06-29 13:41] LABS: BASOPHILS # (AUTO) 0.1 10^3/uL (0.0-0.1); BASOPHILS % (AUTO) 0 % (0-10); EOSINOPHILS # (AUTO) 0.2 10^3/uL (0.0-0.3); EOSINOPHILS % (AUTO) 1 % (0-10); HEMATOCRIT 37 % (35-52); HEMOGLOBIN 12.8 g/dL (11.5-16.0); LYMPHOCYTES # (AUTO) 1.5 10^3/uL (1.0-4.0); LYMPHOCYTES % (AUTO) 8 % (12-44); MEAN CORPUSCULAR HEMOGLOBIN 31 pg (25-34); MEAN CORPUSCULAR HGB CONC 35 g/dL (32-36); MEAN CORPUSCULAR VOLUME 90 fL (80-99); MEAN PLATELET VOLUME 9.1 fL (9.0-12.2); MONOCYTES # (AUTO) 1.2 10^3/uL (0.0-1.0); MONOCYTES % (AUTO) 7 % (0-12); NEUTROPHILS # (AUTO) 14.6 10^3/uL (1.8-7.8); NEUTROPHILS % (AUTO) 83 % (42-75); PLATELET COUNT 416 10^3/uL (130-400); WHITE BLOOD COUNT 17.6 10^3/uL (4.3-11.0)
[2022-06-29 13:59] LABS: POTASSIUM 3.7 MMOL/L (3.6-5.0)
[2022-06-29 14:00] LABS: ALBUMIN 3.5 GM/DL (3.2-4.5); BILIRUBIN,TOTAL 0.2 MG/DL (0.1-1.0); CALCIUM 8.8 MG/DL (8.5-10.1); CREATININE SERUM 0.59 MG/DL (0.60-1.30); TOTAL PROTEIN 7.3 GM/DL (6.4-8.2)
[2022-06-29] MEDS ORDERED: cefTRIAXone 1 GM PRE-MIX 50 ML IV ONE (14:00)
[2022-06-29 14:06] LABS: BAND NEUTROPHILS 4 %; BASOPHILS % (MANUAL) 0 %; EOSINOPHILS % (MANUAL) 1 %; LYMPHOCYTES % (MANUAL) 7 %; MONOCYTES % (MANUAL) 6 %; NEUTROPHILS % (MANUAL) 82 %
[2022-06-29 15:11] LABS: AMPHETAMINE SCREEN, URINE POSITIVE (NEGATIVE); BARBITURATE SCREEN URINE NEGATIVE (NEGATIVE); BENZODIAZEPINES SCREEN URINE NEGATIVE (NEGATIVE); CANNABINOID SCREEN, URINE NEGATIVE (NEGATIVE); COCAINE SCREEN URINE NEGATIVE (NEGATIVE); METHADONE STAT NEGATIVE (NEGATIVE); OPIATE SCREEN URINE NEGATIVE (NEGATIVE); OXYCODONE STAT NEGATIVE (NEGATIVE); PROPOXYPHENE STAT NEGATIVE (NEGATIVE); TRICYCLIC ANTIDEPRESSANTS SCRE NEGATIVE (NEGATIVE)
[2022-06-29 15:14] VITALS: BP 115/68
== END 2022-06-29 16:20 | disposition other institution (70) ==
LOC: EDUNIT# 12:58 → ER FS 13:01
DX: O23.02 Infections of kidney in pregnancy, second trimester (principal); Z28.310 Unvaccinated for COVID-19; Z72.0 Tobacco use; Z3A.00 Weeks of gestation of pregnancy not specified
CPT/HCPCS: 36415; 80053; 80306; 81000; 83605; 85007; 85027; 87040; 87077; 87088; 87186